=== PATIENT | female | born 1985 ===

== ENCOUNTER 2017-10-01 08:33 | Emergency (ER) | payer SELFPAY ==
[2017-10-01 08:42] VITALS: BMI 30.9
[2017-10-01 09:02] VITALS: RESP 18
--- NOTE | 2017-10-01 09:04 | C.PDOC ---
History Of Present Illness 31 year old female presents to the ED c/o of pressure and pain mostly located in her left chest wall since yesterday. Patient states pain worsens with deep breathing. Patient denies fever, chills, cough, trauma, injury, fall, nausea, vomit, diarrhea. Time Seen by Provider: 10/01/17 08:44 Chief Complaint (Nursing): Chest Pain History Per: Patient History/Exam Limitations: no limitations Onset/Duration Of Symptoms: Days Current Symptoms Are (Timing): Still Present Quality: Pressure Modifying Factors: None Exacerbating Factors: None Recent travel outside of the [place]: No Additional History Per: Patient Past Medical History Reviewed: Historical Data, Nursing Documentation, Vital Signs Vital Signs: Last Vital Signs Temp 98.0 F 10/01/17 09:02 Pulse 73 10/01/17 09:02 Resp 18 10/01/17 09:02 BP 134/82 10/01/17 09:02 Pulse Ox 98 10/01/17 09:34 - Medical History PMH: No Chronic Diseases Surgical History: Appendectomy Family History: States: Unknown Family Hx - Social History Hx Alcohol Use: No Hx Substance Use: No - Immunization History Hx Tetanus Toxoid Vaccination: No Hx Influenza Vaccination: No Hx Pneumococcal Vaccination: No Review Of Systems Constitutional: Negative for: Fever, Chills Cardiovascular: Positive for: Chest Pain. Negative for: Palpitations Respiratory: Negative for: Cough, Shortness of Breath Gastrointestinal: Negative for: Nausea, Vomiting, Abdominal Pain Skin: Negative for: Rash Neurological: Negative for: Weakness, Numbness Physical Exam - Physical Exam Appears: Non-toxic, No Acute Distress Skin: Normal Color, Warm, Dry Head: Atraumatic, Normacephalic Eye(s): bilateral: Normal Inspection Nose: No Discharge, No Deformity Oral Mucosa: Moist Neck: Normal ROM, Supple Chest: Symmetrical Cardiovascular: Rhythm Regular, No Murmur Respiratory: Normal Breath Sounds, No Rales, No Rhonchi, No Wheezing Gastrointestinal/Abdominal: Soft, No Tenderness, No Guarding, No Rebound Extremity: Normal ROM, No Deformity, No Swelling Neurological/Psych: Oriented x3, Normal Speech, Normal Cognition Gait: Steady ED Course And Treatment O2 Sat by Pulse Oximetry: 98 (On RA) Pulse Ox Interpretation: Normal - Radiology CXR: Interpreted by Me, Viewed By Me CXR Interpretation: Yes: No Acute Disease. No: Infiltrates Medical Decision Making Medical Decision Making: Impression: chest wall pain, pressure Plan: * EKG * CXR * Toradol 60 mg IM Disposition Counseled Patient/Family Regarding: Studies Performed, Diagnosis, Need For Followup - Disposition Referrals: [facility] [Outside] [facility] [Outside] Disposition: HOME/ ROUTINE Disposition Time: 09:48 Condition: IMPROVED Additional Instructions: TOME MOTRIN Y / O TYLENOL SEGN SE INDICA PARA EL DOLOR. APLICA PARCHE AL MALIA AFECTADA. MAX 3 PARCHES A LA VEZ. RETIRE EL PATCH 12 HORAS DESPUS DE LA APLICACIN INICIAL. ALTERNATIVAS 12 HORAS ACTIVADAS, 12 HORAS DESACTIVADAS. Prescriptions: Lidocaine 5% [Lidoderm] 1 ea TD PRN PRN #10 patch PRN Reason: Pain, Moderate (4-7) Instructions: Chest Wall Pain (ED) Forms: [facility] (Lao) Print Language: ITALIAN - Clinical Impression Clinical Impression: Chest wall pain - Scribe Statement The provider has reviewed the documentation as recorded by the Scribe Ascencion Linda All medical record entries made by the Scribe were at my direction and personally dictated by me. I have reviewed the chart and agree that the record accurately reflects my personal performance of the history, physical exam, medical decision making, and the department course for this patient. I have also personally directed, reviewed, and agree with the discharge instructions and disposition.
--- NOTE | 2017-10-01 09:39 | RAD ---
HISTORY: cp COMPARISON: No prior. TECHNIQUE: Chest PA and lateral FINDINGS: LUNGS: Minor bibasilar atelectasis PLEURA: No significant pleural effusion identified. No pneumothorax apparent. CARDIOVASCULAR: Normal. OSSEOUS STRUCTURES: No significant abnormalities. VISUALIZED UPPER ABDOMEN: Normal. OTHER FINDINGS: None. IMPRESSION: Minor bibasilar atelectasis
[2017-10-01] MEDS ORDERED: Lidocaine 5% Patch TD STA (09:50)
[2017-10-01] MEDS ORDERED: Lidocaine 5% Patch TD ONE (10:05)
[2017-10-01 10:16] VITALS: BP 117/80; PULSE 77; TEMP 98; O2SAT 96
--- NOTE | 2017-10-02 12:21 | CARD ---
APPROVED REPORT EKG Measurement Heart [id number] <Conclusion> Normal sinus rhythm Nonspecific T wave abnormality Abnormal ECG
== END 2017-10-01 10:00 | disposition home or self-care (01) ==
LOC: C.ER 08:33
DX: R07.89 Other chest pain (principal)
CPT/HCPCS: 71046; 93005; 96372; 99284; J1885